=== PATIENT | female | born 1960 | race Caucasian/White ===

== ENCOUNTER 2017-10-03 08:04 | Day surgery (SDC) | payer BC ==
[2017-10-03] MEDS ORDERED: PROPOFOL 10 MG/ML VIAL IV ONE (08:05)
[2017-10-03] MEDS ORDERED: LIDOCAINE 2% MDV (20MG/ML) 20ML VIAL IV ONE (08:05)
--- NOTE | 2017-10-03 12:50 | Operative Note ---
DATE OF SURGERY: 10/03/2017 REFERRING PROVIDER: Calli Salas DO PREOPERATIVE DIAGNOSIS: Personal history of colon polyps. POSTOPERATIVE DIAGNOSIS: Inadequate preparation. OPERATION: COLONOSCOPY, surveillance. PROCEDURE: After informed consent was obtained, the patient was placed in the left lateral decubitus position in the endoscopy suite, sedated and monitored by the Department of Anesthesia. Digital rectal exam was unremarkable. A well-lubricated CF-160AL colonoscope was inserted into the rectum and advanced to the cecum. The preparation quality was poor. There was formed and semi-particulate stool and cloudy liquid throughout the length of the colon. Numerous areas were lavaged. Fluid and stool evacuated. Small and moderate size polyps could easily have been missed by the preparation quality. No large obstructing lesions were readily identified. The endoscope was retracted through the course of the cecum, ascending colon, transverse colon, descending colon, sigmoid colon, and rectum. The rectal ampulla deflated and the endoscope was removed. RECOMMENDATIONS: Will have the patient undergo repeat exam in the next few months. She should undergo a 2-day preparation. As always, thank you for allowing me to participate in the health care of your patients. CC: Calli Salas DO [facility]ITALMirta
== END 2017-10-03 09:52 | disposition home or self-care (01) ==
LOC: HOP 08:04
PROVIDERS: ATTEND Internal Medicine Gastroenterology
DX: Z12.11 Encounter for screening for malignant neoplasm of colon (principal); Z86.010 Personal history of colon polyps; Z53.8 Procedure and treatment not carried out for other reasons; E11.9 Type 2 diabetes mellitus without complications; Z79.4 Long term (current) use of insulin; E78.00 Pure hypercholesterolemia, unspecified; I10 Essential (primary) hypertension; M19.90 Unspecified osteoarthritis, unspecified site
CPT/HCPCS: 00812; G0105